=== PATIENT | male | born 1990 | race Caucasian/White ===

== ENCOUNTER 2016-10-13 22:53 | Emergency (ER) | payer OTHER ==
[2016-10-14 00:26] LABS: SALICYLATE <4.0 mg/dL
[2016-10-14 00:39] LABS: ACETAMINOPHEN <10 ug/mL
== END 2016-10-14 03:50 | disposition home or self-care (01) ==
LOC: CED 22:53
PROVIDERS: Nurse Practitioner Family
DX: F43.0 Acute stress reaction (principal); R45.851 Suicidal ideations; F31.9 Bipolar disorder, unspecified; Z90.89 Acquired absence of other organs; Z79.899 Other long term (current) drug therapy
CPT/HCPCS: 36415; 99285; G0480